=== PATIENT | male | born 1980 | race Caucasian/White ===

== ENCOUNTER 2019-01-15 00:44 | Emergency (ER) | payer SELFPAY | END 2019-01-15 03:19 | disposition home or self-care (01) | LOC: E/R 00:44 | DX: F15.90 Other stimulant use, unspecified, uncomplicated (principal) | CPT/HCPCS: 99283 ==

== ENCOUNTER 2019-01-15 05:45 | Emergency (ER) | payer SELFPAY | END 2019-01-15 07:01 | disposition left against medical advice (07) | LOC: E/R 05:45 | DX: Z53.21 Procedure and treatment not carried out due to patient leaving prior to being seen by health care provider (principal) ==